=== PATIENT | male | born 1955 | race Caucasian/White ===

== ENCOUNTER 2017-12-16 03:18 | Observation (INO) ==
[2017-12-16] MEDS ORDERED: Nitroglycerin 0.4 MG TAB.SUBL SL PRN (10:03)
[2017-12-16] MEDS ORDERED: Naloxone 0.4 MG/ML INJ IVP PRN (10:12)
[2017-12-16] MEDS: amLODIPine 5 MG TABLET PO SCH (11:01)
[2017-12-16] MEDS: Aspirin 81 MG TAB.CHEW PO SCH (11:01)
[2017-12-16] MEDS: Loratadine 10 MG TABLET PO SCH (11:01)
[2017-12-16] MEDS: Losartan/HCTZ 50-12.5 TABLET PO SCH (11:01)
--- NOTE | 2017-12-16 20:25 | Internal Med History&Physical ---
Date of Encounter: 12/16/17 Time of Encounter: 08:07 Internal Medicine - H&P: HPI Chief complaint: Chest Pain Admitted From: Hospital to Hospital Transfer Plans for Post Hospital Care: Home History of present illness: Mr. Polanco is a 62 year old white male who presented to [facility] ED today with chest pain. He states that pain began last night. He described the pain as a "tightness" in his chest. He checked his blood pressure and became concerned because it was slightly elevated at 140s/90s. He has history of CAD s /p cath with stents 1 month ago. He states that pain is accompanied by some SOB this AM, but no diaphoresis or radiation. He denies fever, chills, abdominal pain, nausea, vomiting, changes in bladder, or changes in bowels. He took nitroglycerin prior to ED arrival without any relief of pain. He states that nothing makes it better or worse. I was asked by [place] ED physician to transfer patient for admission for ACS ruleout. During my interview, patient states that pain is much better. His only concern is his blood pressure. He has not taken his AM blood pressure medications today. Past Med Surg Social Fam HX - Past Medical History Attestation: Yes The following information was validated with the patient. Source: patient Medical history: hyperlipidemia, hypertension, other (CAD) Psychiatric history: no psych history - Past Surgical History Surgical History: angioplasty/stent - Social History Smoking Status: Never smoker Smokeless Tobacco Status: No Alcohol use: none Drug use: none - Family History Father Hx Family Cardiac Disorders: Yes Brother Living Status: Still Living Hx Family Cardiac Disorders: Yes (heart stent) Internal Medicine - H&P: Meds amLODIPine [Norvasc] 10 mg PO DAILY 10/12/17 [History] Carvedilol [Coreg] 6.25 mg PO BID 11/20/17 [History] Aspirin 81 mg PO DAILY #30 tab.chew 11/21/17 [Rx] Atorvastatin [Lipitor] 80 mg PO HS #30 tablet 11/21/17 [Rx] Clopidogrel [Plavix] 75 mg PO DAILY #30 tablet 11/21/17 [Rx] Nitroglycerin 0.4 mg SL Q5MIN PRN #25 tab.subl 11/21/17 [Rx] Acetaminophen w/Cod 300-30 mg [Tylenol w/Codeine #3] 1 - 2 tab PO Q4HR PRN 12/16 [History] Loratadine [Claritin] 10 mg PO DAILY 12/16/17 [History] Losartan/Hydrochlorothiazide [Losartan-Hctz 100-25 mg Tab] 1 tab PO DAILY [History] Meloxicam [Meloxicam] 15 mg PO DAILY 12/16/17 [History] 3 Allergy/AdvReac Type Severity Reaction Status Date / Time No Known Allergies Allergy Verified 12/16/17 01:10 All Systems PM: A 10-system review of systems was performed and is negative for pertinent findings except as documented above in the HPI. - Constitutional Constitutional: no anorexia, no chills, no fatigue, no fever(s), no lethargy, no malaise, no weakness, no weight gain, no weight loss - EENT Eyes: no blurry vision, no diplopia, no discharge, no loss of vision, no pain, no other visual disturbances Ears: no decreased hearing, no ear pain Nose, mouth and throat: no dry mouth, no dysphagia, no facial pain, no mouth lesions, no mouth pain, no nasal congestion, no nasal discharge, no sinus pain, no sore throat - Cardiovascular Cardiovascular ROS IM: chest pain, dyspnea, no diaphoresis, no edema, no lightheadedness, no palpitations, no syncope - Respiratory Respiratory: dyspnea, no cough, no hemoptysis, no wheezing, no chest congestion - Gastrointestinal Gastrointestinal: no abdominal pain, no change in bowel habits, no constipation , no diarrhea, no dysphagia, no heartburn, no hematemesis, no hematochezia, no melena, no nausea, no vomiting - Genitourinary Genitourinary ROS male: no difficulty urinating, no dysuria, no hematuria, no urinary frequency - Musculoskeletal Musculoskeletal ROS IM: no arthralgias, no joint swelling, no muscle weakness, no myalgias - Integumentary Integumentary IM: no erythema, no rash, no skin ulcer, no jaundice - Neurological Neurological ROS: no abnormal gait, no abnormal movements, no abnormal speech, no behavioral changes, no confusion, no dizziness, no focal weakness, no headache(s), no vertigo - Psychiatric Psychiatric: no anxiety, no confusion, no depression - Endocrine Endocrine IM: no cold intolerance, no fatigue, no heat intolerance, no polydipsia, no polyphagia, no polyuria - Constitutional Vitals: Temp Pulse Resp BP Pulse Ox 98.4 F 67 16 129/67 96 12/16/17 19:03 12/16/17 19:03 12/16/17 19:03 12/16/17 19:03 12/16/17 19:03 General appearance: Present: cooperative, A&O X 3, no acute distress, answers questions appropriately - Head Head exam: Present: atraumatic, normocephalic - Eye Eye exam: Present: EOMI, PERRL. Absent: conjunctival injection, nystagmus, scleral icterus - ENT ENT exam: Present: mucous membranes moist, normal external ear exam, normal oropharynx - Neck Neck exam general surgery: Present: supple, trachea midline. Absent: lymphadenopathy, tenderness, thyromegaly - Respiratory Respiratory exam: Present: CTAB. Absent: accessory muscle use, rales, rhonchi, wheezes Additional comments: Normal WOB - Cardiovascular Cardiovascular exam: Present: RRR, +S1, +S2. Absent: diastolic murmur, gallop, rubs, systolic murmur Additional comments: No BLE edema - GI/Abdominal GI/Abdominal exam: Present: normal bowel sounds, soft. Absent: distended, hepatomegaly, mass, splenomegaly, tenderness - Neurological Exam Neurological exam: Present: alert, CN II-XII intact, oriented X3, no focal deficits, strengths equal and symetr throughout. Absent: facial droop, speech deficit - Psychiatric Psychiatric exam: Present: normal affect, normal mood. Absent: anxious, depressed - Skin Skin exam: Present: dry, intact, warm. Absent: cyanosis, rash Internal Med - H&P Results - Labs CBC & Chem 7: 12/17/17 04:52 12/17/17 04:52 Labs: Cardiac Enzymes 12/16/17 12/16/17 Range/Units 10:32 17:21 Troponin I < 0.03 < 0.03 (< 0.04) ng/mL - VTE Reasons for not Prescribing Prophylaxis: Treatment not Indicated - Low risk for VTE Documentation of Mechanical Device: Intermittent pneumatic compression device - Assessment and plan (1) Chest pain Current Visit: Yes Status: Inactive Assessment and plan: Admit for observation with telemetry. Cardiology consulted given recent CAD with stents 1 month ago; appreciate input. Trend troponin x 3. Obtain ECHO. Repeat EKG in AM. Start supplemental O2 PRN. Continue home aspirin, plavix, and lipitor. Continue home Tylenol #3 and tramadol PRN pain. Continue HLD and HTN management as per below. Recheck labwork in AM. Qualifiers: Chest pain type: other chest pain Qualified Code(s): R07.89 - Other chest pain; R07.8 - Other chest pain (2) CAD (coronary artery disease) Current Visit: Yes Status: Chronic Assessment and plan: Management of ACS as per above. Continue home medications. Qualifiers: Coronary Disease-Associated Artery/Lesion type: unspecified vessel or lesion type [place] vs. transplanted heart: unspecified whether [place] or transplanted heart Associated angina: angina presence unspecified Qualified Code(s): I25.10 - Atherosclerotic heart disease of [place] coronary artery without angina pectoris (3) Hypertension Current Visit: Yes Status: Chronic Assessment and plan: Per patient, BP elevated to 140s/90s this AM. Did not take home medications this AM. Restart home anti-hypertensives. Qualifiers: Hypertension type: essential hypertension Qualified Code(s): I10 - Essential (primary) hypertension (4) Chronic lower back pain Current Visit: Yes Status: Chronic Assessment and plan: Continue home Tylenol #3 and tramadol PRN pain. Qualifiers: Back pain laterality: unspecified Sciatica presence: unspecified whether sciatica present Qualified Code(s): M54.5 - Low back pain; G89.29 - Other chronic pain; G89.29 - Other chronic pain (5) DVT prophylaxis Current Visit: Yes Status: Acute Assessment and plan: Low risk and ambulatory. Start SCDs. - Time Spent With Patient Total time spent is greater than 50% in coordination of care (as documented) at patient's floor/unit and/or counseling patient: 25 - 35 minutes
[2017-12-17 05:17] LABS: Basophils # 0.1 K/mcL (0.0-0.2); Basophils % 0.5 %; Eosinophils # 0.2 K/mcL (0.0-0.6); Hematocrit 42.3 % (37.5-50.1); Hemoglobin 14.5 g/dL (12.9-16.9); Immature Granulocytes % 0.3 % (0-4); Lymphocytes # 2.5 K/mcL (0.6-4.6); Lymphocytes % 24.2 %; Mean Corpuscular HGB Conc 34.3 g/dL (31.6-35.5); Mean Corpuscular Hemoglobin 31.4 pg (28.0-33.3); Mean Corpuscular Volume 91.6 fL (83.0-100.0); Mean Platelet Volume 10.3 fL (9.4-12.4); Monocytes # 0.9 K/mcL (0.0-1.3); Monocytes % 8.7 %; Neutrophils # 6.5 K/mcL (1.6-8.9); Platelet Count 197 K/mcL (140-400); Red Blood Count 4.62 M/mcL (4.19-5.50); Red Cell Distribution Width 13.5 % (11.5-14.5); Segmented Neutrophils % 64.3 %
[2017-12-17 05:35] LABS: BUN/Creatinine Ratio 20 (6-26); Blood Urea Nitrogen 17 mg/dL (8-23); Calcium 8.6 mg/dL (8.6-10.3); Carbon Dioxide 25 mEq/L (23-29); Chloride 105 mEq/L (98-107); Glucose 87 mg/dL (70-105); Osmolality,Calculated 289 (280-300); Potassium 3.4 mEq/L (3.5-5.1); Sodium 139 mEq/L (136-145); eGFR For African Americans > 60 (> 60); eGFR For Non-African Americans > 60 (> 60)
--- NOTE | 2017-12-17 08:14 | Cardiology Consult Note ---
<Barby Bowles - Last Filed: 12/17/17 10:29> Date of Encounter: 12/17/17 Time of Encounter: 09:07 Assessment and Plan (1) CAD (coronary artery disease) Current Visit: Yes Status: Chronic Concern for unstable angina at this time due to patient's chest pressure unchanged since cath. We will review cath images and determine if patient needs repeat cath. Patient denies chest pain at this time. Qualifiers: Coronary Disease-Associated Artery/Lesion type: [place] artery [place] vs. transplanted heart: [place] heart Associated angina: angina presence unspecified Qualified Code(s): I25.10 - Atherosclerotic heart disease of [place] coronary artery without angina pectoris (2) Hypertension Current Visit: Yes Status: Chronic Continue home medications Qualifiers: Hypertension type: essential hypertension Qualified Code(s): I10 - Essential (primary) hypertension Discussion w patient/family: The assessment and plan as outlined above was discussed with the patient and/or family members who expressed understanding and agreement. All questions were answered. Thank you for involving us in the care of your patient. Please call with any questions. History of Present Illness Consult date: 12/17/17 Consult reason: Chest Pain History of present illness: Mr. Polanco is a 62 year old male who presented to [place] ED yesterday for chest pressure, hypertension, and headache. Patient was sent to [facility] for further evaluation. Patient had cath completed approximately one month ago and had stents placed in the proximal and distal LAD. Patient states his chest pressure occurred substernally at rest with no radiation, diaphoresis, nausea or vomiting. Patient states he has had intermittent episodes of chest pressure since his cath. He states last evening when he had this chest pressure he took a sublingual nitro with no relief. Most active patient has been since cath was mowing his lawn with a riding mower a few days ago. States he has been taking his plavix and aspirin as prescribed. Patient states the reasoning for his first heart cath was a surgical clearance. His EKG was read abnormal at that time and the decision was made to perform a catheterization. Past Med Surg Social Fam HX - Past Medical History Attestation: Yes The following information was validated with the patient. Medical history: hyperlipidemia, hypertension, other (CAD) Psychiatric history: no psych history - Past Surgical History Surgical History: angioplasty/stent - Social History Smoking Status: Never smoker Smokeless Tobacco Status: No Alcohol use: none Drug use: none - Family History Father Hx Family Cardiac Disorders: Yes Brother Living Status: Still Living Hx Family Cardiac Disorders: Yes (heart stent) Medications and Allergies amLODIPine [Norvasc] 10 mg PO DAILY 10/12/17 [History] Carvedilol [Coreg] 6.25 mg PO BID 11/20/17 [History] Aspirin 81 mg PO DAILY #30 tab.chew 11/21/17 [Rx] Atorvastatin [Lipitor] 80 mg PO HS #30 tablet 11/21/17 [Rx] Clopidogrel [Plavix] 75 mg PO DAILY #30 tablet 11/21/17 [Rx] Nitroglycerin 0.4 mg SL Q5MIN PRN #25 tab.subl 11/21/17 [Rx] Acetaminophen w/Cod 300-30 mg [Tylenol w/Codeine #3] 1 - 2 tab PO Q4HR PRN 12/16 [History] Loratadine [Claritin] 10 mg PO DAILY 12/16/17 [History] Losartan/Hydrochlorothiazide [Losartan-Hctz 100-25 mg Tab] 1 tab PO DAILY [History] Meloxicam [Meloxicam] 15 mg PO DAILY 12/16/17 [History] 3 Allergy/AdvReac Type Severity Reaction Status Date / Time No Known Allergies Allergy Verified 12/16/17 01:10 All Systems Review: The remainder of the systems were reviewed and are negative - Constitutional Constitutional: headache(s), no fever(s) - EENT Eyes: no blurred vision, no loss of vision - Cardiovascular Cardiovascular: as per HPI - Respiratory Respiratory: no cough, no dyspnea - Gastrointestinal Gastrointestinal: no abdominal pain - Integumentary Integumentary: no rash - Neurological Neurological: no abnormal speech, no loss of vision - Psychiatric Psychiatric: anxiety Physical Examination Vital Signs, Last 4 Hours Temp Pulse Resp BP Pulse Ox 12/17/17 07:07 97.7 F 53 15 138/83 92 General: Conversant, No Apparent Distress HEENT: Atraumatic, Normocephaly, Mucus Membranes Moist Neck: No JVD Cardiac: Reg Rate and Rhythm, Normal S1 and S2, No Murmur Lungs: Normal Breath Sounds, No Wheeze, Rales, Rhonchi Neuro: Alert and responsive, No focal deficits noted Abdomen: Soft, Non-Tender Skin: No rashes noted on visualized skin Musculoskeletal: No Chest Wall Tenderness Extremities: No Clubbing, No Cyanosis, No Edema, Normal Pulses Results 12/17/17 04:52 12/17/17 04:52 Lab Results 12/16/17 12/16/17 12/17/17 10:32 17:21 04:52 WBC 10.1 Hgb 14.5 Hct 42.3 Plt Count 197 Sodium Potassium Chloride Carbon Dioxide BUN Creatinine Glucose Calcium Troponin I < 0.03 < 0.03 12/17/17 04:52 WBC Hgb Hct Plt Count Sodium 139 Potassium 3.4 L Chloride 105 Carbon Dioxide 25 BUN 17 Creatinine 0.87 Glucose 87 Calcium 8.6 Troponin I Consult Discharge Plan - Plan Referrals: Norma Cruz CNP [Primary Care Provider] - Leonor Smith CNP [Family Provider] - <Johnnie Vazquez - Last Filed: 12/17/17 13:41> Date of Encounter: 12/17/17 - Attending Attestation I examined this patient and my medical decision-making was reviewed with the Resident Physician. I agree with the documented findings, disposition and treatment plan as described except to the extent set forth below. CC: chest pain Pt presented to [place] ER late yesterday with complaint of mid epigastric chest pain, dull ache, 8/10, associated with head ache, pain in posterior neck, left shoulder, nausea, anxiety, and mild diaphoresis. Pt reports waited up to an hour, tried SL ntg with eventual relief of chest pain. He feels better since hospitalized, no reoccurrence of mid epigastric chest discomfort. He did not realize this pain pattern could be from CAD, but in retrospect thinks this has been ongoing for several months. HE thinks he may have had some improvement in frequency and severity of chest pain following most recent PCI with DIANNA x 2, but that the pain did not completely resolve over the last month. PMH: reviewed PE: pt seen and examined, agree with documentation IMP: 1. Unstable angina - has ruled out for acute UT, however with known residual severe stenosis in proximal RCA, recommend LHC/possible, risks and benefits discussed,d pt elects to proceed with LHC later today if can be arranged. Assessment and Plan Discussion w patient/family: The assessment and plan as outlined above was discussed with the patient and/or family members who expressed understanding and agreement. All questions were answered. Thank you for involving us in the care of your patient. Please call with any questions. History of Present Illness History of present illness: Mr. Polanco is a 62 year old male All Systems Review: The remainder of the systems were reviewed and are negative Physical Examination Vital Signs, Last 4 Hours Temp Pulse Resp BP Pulse Ox 12/17/17 11:15 98.1 F 64 15 124/80 92 Results 12/17/17 04:52 12/17/17 04:52 Lab Results 12/16/17 12/17/17 12/17/17 17:21 04:52 04:52 WBC 10.1 Hgb 14.5 Hct 42.3 Plt Count 197 Sodium 139 Potassium 3.4 L Chloride 105 Carbon Dioxide 25 BUN 17 Creatinine 0.87 Glucose 87 Calcium 8.6 Troponin I < 0.03
[2017-12-17] MEDS ORDERED: Aspirin 81 MG TAB.CHEW PO SCH (09:00)
[2017-12-17] MEDS: Aspirin 81 MG TAB.CHEW PO SCH (10:20)
[2017-12-17] MEDS: Loratadine 10 MG TABLET PO SCH (10:20)
[2017-12-17] MEDS: amLODIPine 5 MG TABLET PO SCH (10:20)
[2017-12-17] MEDS: Losartan/HCTZ 50-12.5 TABLET PO SCH (10:20)
[2017-12-17] MEDS ORDERED: Aspirin 81 MG TAB.CHEW PO ONE (10:36)
--- NOTE | 2017-12-17 11:57 | Pre-Sedation Evaluation ---
Pre-sedation evaluation - Pre-sedation checklist Date of procedure: 12/17/17 Procedure: C Recent Vitals: Last Vital Signs Temp 98.1 F 12/17/17 11:15 Pulse 64 12/17/17 11:15 Resp 15 12/17/17 11:15 BP 124/80 12/17/17 11:15 Pulse Ox 92 12/17/17 11:15 H&P (including ROS) documented in medical record: Yes Previous reaction to sedatives/anesthetics: No Dietary Status: NPO after Midnight Dentition: No loose teeth or bridges ASA Classification *see protocol: CLASS II-Mild systemic disease
[2017-12-17] MEDS ORDERED: ISOVUE-370 200 ML INFUS..BTL IV ONE ×2 (13:25→14:23)
[2017-12-17] MEDS ORDERED: 0.9 % Sodium Chloride 1,000 ML ONE ×2 (13:25→13:29)
[2017-12-17] MEDS ORDERED: Heparin 1,000 UNITS/500 mL 500 ML ONE (13:25)
[2017-12-17] MEDS ORDERED: *HR* Heparin 10,000 UNIT/10 ML VIAL ONE (13:25)
[2017-12-17] MEDS ORDERED: *HR* Midazolam HCl 2 MG/2 ML VIAL ONE (13:28)
[2017-12-17] MEDS ORDERED: *HR* FentaNYL (PF) 100 MCG/2 ML VIAL ONE (13:28)
[2017-12-17] MEDS ORDERED: Nitroglycerin 1,000 MCG/10 ML VIAL IV ONE (13:29)
[2017-12-17] MEDS ORDERED: Tirofiban 12.5 MG/250ML 12.5 MG/250 ML BAG ONE (14:00)
[2017-12-17] MEDS ORDERED: *HR* Atropine Sulfate 1 MG/10 ML SYRINGE ONE (16:10)
--- NOTE | 2017-12-17 17:10 | Invasive Diagnostic Lab Proc ---
Name: Mo Polanco Date of Study: 12/17/2017 Date: 1955 Ht: 64.2in Medical Record#: [id number] Age: 62 Wt: 216.05lb Gender: Male BSA: 2.03 Order #: [id number] BMI: 36.89 Physicians Procedure Physician: Linette Newton MD Referring MD: Referring MD: Staff Name Position Time In BruceJacquelin RT (R) 01:38 PM Jacquelin Barrera RT (R) Scrub 01:38 PM Montserrat Gutiérrez RN Customer Development Manager 01:38 PM Angela Zaragoza RN Monitor 01:38 PM Prashanth Galeano RN Monitor 01:39 PM Indications Indication Unstable Angina Procedures Performed Procedure CORONARY ARTERY ANGIO S&I PRQ CARD DIANNA STENT W/ANGIO 1 VSL Pre-Procedure Checklist Informed consent is complete signed and on chart. H&P is on chart. ID band is on and ID verified with patient. Patient NPO for procedure The procedure was described for the patient and questions were answered. Blood Pressure: 124/80 ECG is on chart. Plan of Care Patient will tolerate the procedure without complications. Adequate level of comfort will be maintained. Hemodynamics will remain stable Patient will recover from procedure without complications. Respiratory function will be maintained. Cardiac rhythm will remain stable. Patient temperature will be maintained. Patient and/or family have verbalized understanding of the procedure. Patient Education Chief Complaint/Reason for Test: Cardiac Cath Developmental Category: Adult (18-64 years) Developmentally Appropriate for Age: Yes Learning Barriers: None Education Needs: Procedure Education Method: Verbal Information Taught: Cardiac Cath Educational Evaluation: Able to repeat information Intravenous Access Time IV Size Location DC'd Fluid/Drip Rate Units RN 01:45 PM 20g 1 08/30" Patent On Arrival Rt Antecubital 0.9NaCl Montserrat Gutiérrez RN Allergies No Known Allergies Vital Signs Time BP (mmHg) HR (bpm) O2 Sat. RR (bpm) LOC 01:22 PM 124 / 80 64 92 % 15 5 = Fully awake and oriented or at pre-proc level 01:40 PM / % 5 = Fully awake and oriented or at pre-proc level 01:40 PM / % 5 = Fully awake and oriented or at pre-proc level 03:03 PM 126 / 86 60 94 % 22 5 = Fully awake and oriented or at pre-proc level 01:46 PM 143 / 89 62 98 % 01:50 PM 141 / 79 57 98 % 01:55 PM 133 / 78 60 95 % 02:00 PM 133 / 80 64 96 % 02:05 PM 133 / 80 59 96 % 02:10 PM 127 / 72 60 96 % 02:15 PM 125 / 76 52 94 % 02:20 PM 115 / 71 50 95 % 02:25 PM 109 / 66 51 95 % 02:30 PM 111 / 67 52 94 % 02:35 PM 109 / 66 54 94 % 02:40 PM 115 / 69 54 95 % 02:46 PM 112 / 69 52 95 % 02:50 PM 122 / 75 57 96 % 03:15 PM 111 / 78 60 95 % 16 5 = Fully awake and oriented or at pre-proc level 03:30 PM 115 / 74 64 95 % 16 5 = Fully awake and oriented or at pre-proc level 03:45 PM 130 / 74 58 96 % 16 5 = Fully awake and oriented or at pre-proc level 04:00 PM 111 / 69 60 94 % 5 = Fully awake and oriented or at pre-proc level 04:15 PM 125 / 81 52 95 % 5 = Fully awake and oriented or at pre-proc level 04:30 PM 143 / 86 53 94 % 5 = Fully awake and oriented or at pre-proc level 04:45 PM 122 / 78 52 95 % 5 = Fully awake and oriented or at pre-proc level 04:58 PM 113 / 71 54 95 % 5 = Fully awake and oriented or at pre-proc level Procedural Medications Time Medication Dose Units Method Given By 01:44 PM Oxygen 2 L/min nasal cannula 01:49 PM Versed 1 mg Intravenous Montserrat Gutiérrez RN 01:49 PM Fentanyl 50 mcg Intravenous Montserrat Gutiérrez RN 01:50 PM Lidocaine 2% 10 ml Subcutaneous Linette Newton MD 01:54 PM Heparin 5000 units Intravenous Montserrat Gutiérrez RN 02:07 PM Aggrastat Bolus: 50 ml Intravenous Montserrat Gutiérrez RN 02:07 PM Aggrastat 12.5mg/250ml 18 ml/hr Intravenous Montserrat Gutiérrez RN Zohra Score Preprocedure Postprocedure Activity 2- Moves 4 extremities sustained head lift Activity 2- Moves 4 extremities sustained head lift Circulation 2- SBP +/= 20 points of pre-anesthetic level Circulation 2- SBP +/= 20 points of pre-anesthetic level Consciousness 2- Awake and alert oriented x 3 Consciousness 2- Awake and alert oriented x 3 O2 Saturation 2- Able to maintain O2 satruation of 92% on room air O2 Saturation 2- Able to maintain O2 satruation of 92% on room air Respiratory 2- Able to deep breathe and cough well Respiratory 2- Able to deep breathe and cough well Total Score 10 Total Score 10 Contrast Agent: Isovue Diagnostic Contrast: 150 ml Total Contrast: 150 ml Fluoro Dose: 2262 mGy Activated Clotting Time Time Seconds to Clot 02:34 PM 295 02:55 PM 205 04:00 PM 157 Procedure Log Time Note Enter By 01:38 PM Jacquelin Barrera RT (R) Position: Scrub Time in: 13:38 [facility] 01:38 PM Montserrat Gutiérrez RN Position: Customer Development Manager Time in: 13:38 [facility] 01:38 PM Angela Zaragoza RN Position: Monitor Time in: 13:38 [facility] 01:39 PM Prashanth Galeano RN Position: Monitor Time in: 13:39 [facility] 01:39 PM Hair removed from procedure site in procedure lab using clippers. Bilateral groin prepped with Chloraprep by Angela Zaragoza RN, then patient was draped. Skin intact. [facility] 01:40 PM Physican responded and notified patient is ready 13:40 tsmmers 01:40 PM Physician arrived 13:40 [facility] 01:40 PM Meet and greet completed [facility] 01:40 PM Sign in performed according to hospital policy. mmers 01:40 PM Procedure start 13:40 tsoummers 01:40 PM Time: 13:40 Patient comfortable and pain free: Yes tsoummers 01:40 PM Time: 13:40LOC: 5 = Fully awake and oriented or at pre-proc level tsoummers 01:42 PM Vitals capture started with the following parameters, Patient=Adult, Interval=5 min, Initial Ffalzhls=789 mmHg, Deflation Rate=5 mmHg, Cuff placed on Right Arm 01:43 PM CathStat 01:43 PM NIBP STAT measurement started. 01:44 PM Time: 13:44 Oxygen on at 2 L/min per nasal cannula by priscilla 01:44 PM Vitals capture started with the following parameters, Patient=Adult, Interval=5 min, Initial Lcwazzdr=002 mmHg, Deflation Rate=5 mmHg, Cuff placed on Right Arm 01:46 PM HR=62 bpm, QTTJ=198/89 mmhg, SpO2=98.0 %, Comment=NSR 01:46 PM Recorded ECG: HR=63 Condition=Condition 1 01:49 PM Pressure channel 1 zeroed. :49 PM Time: 13:49 Versed 1 mg Intravenous Given by Montserrat Gutiérrez RN :49 PM Time: 13:49 Fentanyl 50 mcg Intravenous Given by Montserrat Gutiérrez RN :50 PM Time out performed according to hospital policy romain :50 PM Time: 13:50 10 ml Lidocaine 2% to right groin Subcutaneous Given by Linette Newton MD juan 01:50 PM HR=57 bpm, AGYO=506/79 mmhg, SpO2=98.0 %, Comment=SB :50 PM Access obtained by percutaneous puncture. 6Fr 10cm Terumo [place] sheath placed in right Femoral artery. [id number] 01:50 PM 5Fr FL 4 catheter inserted over the wire [facility] :50 PM 0.035 145cm Navilyst 3mmJ wire [id number] 01:52 PM Clinical Presentation: Unstable angina kyle 01:52 PM wire removed romain :53 PM Recorded Pressure: Ao, HR=58, Condition=Condition 1 (Aorta) Ao 120/79/98 01:53 PM Time: 13:40LOC: 5 = Fully awake and oriented or at pre-proc level romain :53 PM LCA angiography performed in multiple views. kyle :55 PM Time: 13:54 Heparin 5000 units Intravenous Given by Montserrat Gutiérrez RN juan :55 PM HR=60 bpm, QENO=660/78 mmhg, SpO2=95.0 %, Comment=NSR :55 PM Time: 13:40 Patient comfortable and pain free: Yes juan :55 PM Catheter removed juan :56 PM 6Fr JR 4 Dennard Bright-Tip guide catheter was used to cannulate the PCI vessel successfully. reused? No tsoummers 01:57 PM RCA angiography performed in multiple views. tsmm 01:58 PM Inflation device was opened. tsoummers 01:59 PM .014 [employer] [place] 190cm guide wire across target lesion- successful. reused? No tsoummers 02:00 PM Recorded Pressure: Ao, HR=64, Condition=Condition 1 (Aorta) Ao 99/61/76 02:00 PM HR=64 bpm, DMOW=684/80 mmhg, SpO2=96.0 %, Comment=NSR 02:01 PM 2.0 mm x 12 mm Emerge Monorail balloon across target lesion- successful. reused? No tsoummers 02:03 PM Recorded Pressure: Ao, HR=68, Condition=Condition 1 (Aorta) Ao 120/74/96 02:03 PM Lesion found in Proximal RCA. Pre Stenosis: 90 Pre DONNIE Flow: 3: Complete and Brisk Flow/Perfusion tsoummers 02:05 PM HR=59 bpm, JTRA=536/80 mmhg, SpO2=96.0 %, Comment=NSR 02:05 PM .014 [employer] [place] 190cm guide wire across target lesion- successful. reused? No tsoummers 02:07 PM Time: 14:07 Aggrastat Bolus: 50 ml Intravenous Given by Montserrat Gutiérrez RN Jenkins pump tsoumm 02:07 PM Time: 14:07 Aggrastat 12.5mg/250ml 18 ml/hr Intravenous Given by Montserrat Gutiérrez RN Jenkins pump tsoumm 02:08 PM Balloon inflated @ 6 violeta for 8 seconds tsoumm 02:08 PM Balloon inflated @ 8 violeta for 10 seconds tsoumm 02:09 PM Balloon inflated @ 6 violeta for 9 seconds tsoummers 02:09 PM Balloon inflated @ 8 violeta for 8 seconds tsoummers 02:09 PM Balloon catheter removed intact. tsoumm 02:10 PM HR=60 bpm, VDFI=164/72 mmhg, SpO2=96.0 %, Comment=NSR 02:10 PM Recorded Pressure: Ao, HR=61, Condition=Condition 1 (Aorta) Ao 106/67/84 02:10 PM Time: 13:55 Patient comfortable and pain free: Yes tsoummers 02:11 PM 2.5mm x 20mm Synergy drug-eluting stent across target lesion- successful Lot #[id number] tsoummers 02:15 PM HR=52 bpm, ZHDD=988/76 mmhg, SpO2=94.0 %, Comment=NSR 02:19 PM Guide wire x 2 removed intact. tsoummers 02:19 PM Stent removed intact not deployed. tsoummers 02:20 PM HR=50 bpm, HUXT=330/71 mmhg, SpO2=95.0 %, Comment=SB 02:21 PM Guidewire reinserted tsoummers 02:23 PM 2nd guidewire reinserted tsoummers 02:25 PM HR=51 bpm, KMCG=221/66 mmhg, SpO2=95.0 %, Comment=SB 02:25 PM Time: 14:10 Patient comfortable and pain free: Yes tsoummers 02:26 PM 2.0mm x 12mm balloon reinserted tsoummers 02:27 PM Balloon inflated @ 6 violeta for 6 seconds tsoummers 02:28 PM Balloon inflated @ 8 violeta for 4 seconds tsoummers 02:28 PM Balloon inflated @ 10 violeta for 7 seconds tsoummers 02:29 PM Balloon inflated @ 8 violeta for 4 seconds tsoummers 02:29 PM Balloon inflated @ 10 violeta for 6 seconds tsoummers 02:30 PM Balloon catheter removed intact. tsoummers 02:30 PM HR=52 bpm, PTLW=856/67 mmhg, SpO2=94.0 %, Comment=SB 02:30 PM two guidewires removed tsoummers 02:32 PM .014 [employer] [place] 190cm guide wire across target lesion- successful. reused? No tsoummers 02:34 PM At 14:34 the ACT was 295 seconds. tsoummers 02:35 PM HR=54 bpm, YJWZ=419/66 mmhg, SpO2=94.0 %, Comment=SB 02:37 PM 2.5 mm x 12 mm Emerge Monorail balloon across target lesion- successful. reused? No tsoummers 02:39 PM Balloon inflated @ 6 violeta for 10 seconds tsoummers 02:39 PM Balloon inflated @ 6 violeta for 5 seconds tsoummers 02:39 PM Balloon inflated @ 12 violeta for 18 seconds tsoummers 02:40 PM Balloon inflated @ 12 violeta for 4 seconds tsoummers 02:40 PM Balloon inflated @ 12 violeta for 4 seconds tsoummers 02:40 PM HR=54 bpm, WACY=581/69 mmhg, SpO2=95.0 %, Comment=SB 02:40 PM Balloon inflated @ 12 violeta for 4 seconds tsoummers 02:40 PM Time: 14:25 Patient comfortable and pain free: Yes tsoummers 02:41 PM Balloon catheter removed intact. tsoumm 02:42 PM 2.5mm x 20mm Synergy reinserted tsoummers 02:44 PM bed management calls, pt will be sent to 2N01 following procedure. tsoumm 02:45 PM Stent deployed @ 11 violeta for 9 seconds tsoumm 02:45 PM Stent balloon reinflated @ 16 violeta for 10 seconds tsoummers 02:46 PM HR=52 bpm, EFKP=148/69 mmhg, SpO2=95.0 %, Comment=SB 02:46 PM Stent delivery system removed intact. tsoumm 02:46 PM Guide wire removed intact. tsoumm 02:47 PM Guide catheter removed intact. tsoummers 02:47 PM Procedure completed at 14:47 tsoummers 02:47 PM Did you address DONNIE flow and Dominance? Yes tsoummers 02:47 PM Sign out completed: Radiation Dose 2261.95 mGy Fluoro Time: 25.8 Isovue 370 - 200ml contrast 150 ml given by Linette Newton MD. Complications: NoneCardiac Rehab Consult needed: YesConfirmed administered medications: Yes tsoummers 02:48 PM Isovue 370 - 200ml,2 Bottle(s) used. tsoummers 02:49 PM Sheath left in place to be pulled on floor/holding area tsoummers 02:49 PM 2N01 not clean per MCKENZIE MONGE at this time tsoummers 02:50 PM Estimated Blood Loss: minimal tsoummers 02:50 PM Post ECG Sinus Bradycardia tsoummers 02:50 PM Post Blood Pressure 112/69 tsoummers 02:50 PM HR=57 bpm, ZSVA=537/75 mmhg, SpO2=96.0 %, Comment=SB 02:51 PM 14:50 Post Pulses Bilateral DP & PT 2+ tsoummers 02:52 PM Information taught Cardiac Cath and PCI tsoummers 02:53 PM Report given to Chidi RN Pt taken to 2N Room #01. 14:53 room not clean tsoummers 02:53 PM Report given to lenard MONGE Pt taken to Holding room Room #1. 14:53 tsoummers 02:54 PM floor delay due to bed dirty tsoumm 02:55 PM Family placed in consult room. tsoumm 02:55 PM Complications: None tsoummers 02:55 PM At 14:55 the ACT was 205 seconds. mm 02:55 PM Fluoro Time: 25.8 mm 02:55 PM Isovue 370 - 200ml contrast [address] Newton. oumm 02:55 PM Radiation Dose 2261.95 mGy oumm 02:55 PM Education needs Procedure, Plan of Care, and Responsibilities of Patient in Care oumm 02:55 PM Learning barriers :None oummers 02:55 PM Education Methods Verbal mm 02:55 PM Education evaluation Able to repeat information [facility] 02:55 PM Site status No bleeding/hematoma - Rt Groin as reported by Jacquelin Barrera RT (R) at 14:55 tsoummers 02:55 PM Opsite applied tsoummers 02:58 PM Lesion found in Proximal Circumflex. Pre Stenosis: 60 Pre DONNIE Flow: tsoummers 02:58 PM Lesion found in LMCA. Pre Stenosis: 20 Pre DONNIE Flow: tsoummers 02:59 PM Lesion found in 1st Diagonal. Pre Stenosis: 80 Pre DONNIE Flow: tsoummers 02:59 PM Left Main Coronary Artery with 20% stenosis tsoummers 02:59 PM Mid/Distal Left Anterior Descending Coronary Artery and diagonal branches with 80% stenosis. If graft is supplying this area, 0 % stenosis tsoummers 02:59 PM Circumflex, Obtuse Marginal, Left Posterior Descending, and Left Posterolateral Coronary Arteries with 60 % stenosis. If graft is supplying this area, 0 % stenosis tsoummers 02:59 PM Right Coronary, Right Posterior Descending Arteries with Right Posterolateral and Acute Marginal branches with 90 % stenosis. If graft is supplying this area, 0 % stenosis tsoummers 03:00 PM Lesion found in Distal RCA. Pre Stenosis: 70 Pre DONNIE Flow: tsoummers 03:01 PM Patient out of room: 15:09 tsouromain 03:02 PM Lesion found in Mid RCA. Pre Stenosis: 50 Pre DONNIE Flow: tsarmandmmromain 03:03 PM pt checked into HR 1 [email or web address] 03:10 PM Coronary Dominance: right priscilla 03:53 PM pt voided 300mL clear dark yellow urine [facility] 04:18 PM Arterial sheath pulled using manual compression and V+ Pad for 19 minutes by Pastora Lopez RN [facility] 04:32 PM spoke with 2N nurse Good, room has still not been cleaned. Sheath has been pulled by Fatuma Lopez RN. Pt will go back to [address] [place] [address] 04:37 PM Arterial sheath pulled, 2x2 closure device used and was Successful S/N. [facility] 04:37 PM Report given to Oneida MONGE Pt taken to Room #45. 16:37 [email or web address] 05:00 PM pt transported to [address] [place] [address] Complications Complication None None Hemodynamics Pressures Site Systolic/A Wave Diastolic/V Wave Mean AO 120 79 98 AO 99 61 76 AO 120 74 96 AO 106 67 84 Post Procedure Information Blood Pressure: 112/69 mmHg Rhythm: Sinus Bradycardia Post procedural instructions were given Site Checks Time Location Status Staff Sheath In? Note 02:55 PM Rt Groin No bleeding/hematoma Jacquelin Barrera RT (R) Yes 03:03 PM Rt Groin No bleeding/ No Hematoma Jacquelin Barrera RT (R) Yes 03:15 PM Rt Groin No bleeding/ No Hematoma Pastora Lopez RN Yes 03:30 PM Rt Groin No bleeding/ No Hematoma Pastora Lopez RN Yes 03:45 PM Rt Groin No bleeding/ No Hematoma Pastora Lopez RN Yes 04:00 PM Rt Groin No bleeding/ No Hematoma Pastora Lopez RN Yes 04:15 PM Rt Groin No bleeding/ No Hematoma Pastora Lopez RN Yes 04:30 PM Rt Groin No bleeding/ No Hematoma Pastora Lopez RN 04:45 PM Rt Groin No bleeding/ No Hematoma Pastora Lopez RN 04:58 PM Rt Groin No bleeding/ No Hematoma Pastora Lopez RN Pulses Time Site Pre-Procedure Post-Procedure Note 12/17/2017 1:21:00 PM Bilateral DP & PT 2+ 12/17/2017 1:22:00 PM Bilateral radial 2+ 2:50:00 PM Bilateral DP & PT 2+ 12/17/2017 3:15:00 PM Bilateral DP & PT 2+ 12/17/2017 3:30:00 PM Bilateral DP & PT 2+ 12/17/2017 3:45:00 PM Bilateral DP & PT 2+ 12/17/2017 4:00:00 PM Bilateral DP & PT 2+ 12/17/2017 4:58:00 PM Bilateral DP & PT 2+ Updated by Narcisa Joseph RN on 12/17/2017 5:01:20 PM electronically signed on 12/17/2017 5:02:42 PM with status of Final
--- NOTE | 2017-12-17 17:10 | Internal Med Progress Note ---
Date of Encounter: 12/17/17 Time of Encounter: 17:06 - Assessment and plan (1) Chest pain Current Visit: Yes Status: Inactive Assessment and plan: Present with chest tightness that radiated to neck. Serial troponin negative. EKG without acute ST changes. Evaluated by cardiology who noted concern for restenosis with persistent chest tightness. 12/17/17 [facility] with successful PCI with drug-eluting stent to proximal RCA, stents to mid LAD and distal LAD from prior procedure patent. Continue dual antiplatelet therapy with ASA, aspirin. Further management per cardiology recommendations. Monitor on telemetry. Qualifiers: Chest pain type: other chest pain Qualified Code(s): R07.89 - Other chest pain; R07.8 - Other chest pain (2) CAD (coronary artery disease) Current Visit: Yes Status: Chronic Assessment and plan: has known CAD with recent stent placement. Now with chest pain as noted above. 12/17/17 [facility] with successful PCI with drug-eluting stent to proximal RCA, stents to mid LAD and distal LAD from prior procedure patent. Continue dual antiplatelet therapy with ASA, aspirin. Continue home statin, BB (monitor HR as he has been somewhat bradycardic). Further course of treatment per cardiology recommendations. Qualifiers: Coronary Disease-Associated Artery/Lesion type: [place] artery [place] vs. transplanted heart: [place] heart Associated angina: angina presence unspecified Qualified Code(s): I25.10 - Atherosclerotic heart disease of [place] coronary artery without angina pectoris (3) Chronic lower back pain Current Visit: Yes Status: Chronic Assessment and plan: per hx. Cont home Tylenol #3 and tramadol PRN pain. Qualifiers: Back pain laterality: unspecified Sciatica presence: unspecified whether sciatica present Qualified Code(s): M54.5 - Low back pain; G89.29 - Other chronic pain; G89.29 - Other chronic pain (4) Hypertension Current Visit: Yes Status: Chronic Assessment and plan: per hx. BP controlled. Continue home BP medication. Monitor BP and titrate PRN Qualifiers: Hypertension type: essential hypertension Qualified Code(s): I10 - Essential (primary) hypertension (5) DVT prophylaxis Current Visit: Yes Status: Acute Assessment and plan: SCDs. - Time Spent With Patient Total time spent is greater than 50% in coordination of care (as documented) at patient's floor/unit and/or counseling patient: - Subjective Interval history: Seen and examined at bedside. Patient is new to me, information obtained from chart review and patient report. He still complaining of chest tightness that radiates to left neck and at the back of his head. Rates 3/10. Overall improved. He does have some shortness of breath with exertion. - Constitutional Vitals: Temp Pulse Resp BP Pulse Ox 98.1 F 64 15 124/80 92 12/17/17 11:15 12/17/17 11:15 12/17/17 11:15 12/17/17 11:15 12/17/17 11:15 General appearance: Present: cooperative, A&O X 3, morbidly obese, no acute distress, answers questions appropriately - Head Head exam: Present: atraumatic, normocephalic - Eye Eye exam: Present: PERRL, conjuntiva pink, sclera anicteric Pupils: Present: PERRL - Neck Neck exam general surgery: Present: supple, trachea midline. Absent: lymphadenopathy - Respiratory Respiratory exam: Present: CTAB. Absent: accessory muscle use, rales, rhonchi, wheezes - Cardiovascular Cardiovascular exam: Present: RRR, +S1, +S2. Absent: diastolic murmur, gallop, rubs, systolic murmur - GI/Abdominal GI/Abdominal exam: Present: normal bowel sounds, soft, no peritoneal signs. Absent: distended, tenderness - Extremities Exam Extremities exam: Present: warm, radial pulses palpable and symmetrical. Absent : calf tenderness, cyanotic, pedal edema - Neurological Exam Neurological exam: Present: CN II-XII intact, oriented X3, no focal deficits. Absent: pronater drift, facial droop, speech deficit - Skin Skin exam: Present: dry, intact Internal Medicine: Result - Labs CBC & Chem 7: 12/17/17 04:52 12/17/17 04:52 Labs: Short CBC 12/17/17 Range/Units 04:52 WBC 10.1 (4.3-11.1) K/mcL Hgb 14.5 (12.9-16.9) g/dL Hct 42.3 (37.5-50.1) % Plt Count 197 (140-400) K/mcL Neutrophils # 6.5 (1.6-8.9) K/mcL BMP 12/17/17 04:52 Sodium 139 Potassium 3.4 L Chloride 105 Carbon Dioxide 25 BUN 17 Creatinine 0.87 Glucose 87 Calcium 8.6 Cardiac Enzymes 12/16/17 Range/Units 17:21 Troponin I < 0.03 (< 0.04) ng/mL - Impressions Impressions Echocardiogram Limited Views 12/17/17 10:12 Impressions: LVEF 60%. Normal LV structure and function. Normal right ventricular structure and function. Left Ventricular Wall Motion: Rest Echo Findings All wall segments showed normal motion. Findings: Study Quality * Technically adequate exam. ECG Findings * Sinus bradycardia. Left Ventricle * LVEF 60%. * Normal LV chamber size, wall thickness and function. Right Ventricle * Normal right ventricular structure and function. Aorta * Normally sized aortic root. Pericardium * There is no pericardial effusion present. - VTE Reasons for not Prescribing Prophylaxis: Treatment not Indicated - Low risk for VTE Documentation of Mechanical Device: Intermittent pneumatic compression device Consult Discharge Plan - Plan Referrals: Leonor Smith, UTILITY ASSEMBLER [Family Provider] - (This is a walkin clinic only they do not make appointments) Linette Newton [Partnered Physician] - (office will call patient at home with follow up appointment)
[2017-12-17] MEDS: *HR* Acetaminophen w/Cod 300-30 mg 1 TAB TABLET PO PRN ×2 (17:13→21:28)
[2017-12-17] MEDS: traMADol 50 MG TABLET PO PRN (17:14)
[2017-12-17] MEDS: 0.9 % Sodium Chloride 1,000 ML IVC SCH ×2 (21:21→21:22)
[2017-12-18] MEDS: traMADol 50 MG TABLET PO PRN ×2 (03:30→12:01)
[2017-12-18] MEDS: *HR* Acetaminophen w/Cod 300-30 mg 1 TAB TABLET PO PRN ×2 (03:34→12:01)
[2017-12-18 05:59] LABS: Hematocrit 40.3 % (37.5-50.1); Hemoglobin 13.6 g/dL (12.9-16.9); Mean Corpuscular Hemoglobin 31.6 pg (28.0-33.3); Mean Corpuscular Volume 92.8 fL (83.0-100.0); Mean Platelet Volume 10.6 fL (9.4-12.4); Platelet Count 201 K/mcL (140-400); Red Blood Count 4.31 M/mcL (4.19-5.50); Red Cell Distribution Width 13.5 % (11.5-14.5)
[2017-12-18 06:24] LABS: BUN/Creatinine Ratio 23 (6-26); Blood Urea Nitrogen 23 mg/dL (8-23); Calcium 8.4 mg/dL (8.6-10.3); Carbon Dioxide 25 mEq/L (23-29); Chloride 107 mEq/L (98-107); Glucose 96 mg/dL (70-105); Osmolality,Calculated 290 (280-300); Potassium 3.6 mEq/L (3.5-5.1); Sodium 138 mEq/L (136-145); eGFR For African Americans > 60 (> 60); eGFR For Non-African Americans > 60 (> 60)
[2017-12-18 06:25] LABS: BUN/Creatinine Ratio 23 (6-26); Blood Urea Nitrogen 23 mg/dL (8-23); eGFR For African Americans > 60 (> 60); eGFR For Non-African Americans > 60 (> 60)
[2017-12-18 06:26] LABS: Troponin I < 0.03 ng/mL (< 0.04)
[2017-12-18] MEDS: Aspirin 81 MG TAB.CHEW PO SCH (09:21)
[2017-12-18] MEDS: Loratadine 10 MG TABLET PO SCH (09:21)
[2017-12-18] MEDS: amLODIPine 5 MG TABLET PO SCH (09:21)
[2017-12-18] MEDS: Losartan/HCTZ 50-12.5 TABLET PO SCH (09:21)
--- NOTE | 2017-12-18 10:12 | Cardiology Progress Note ---
Date of Encounter: 12/18/17 Time of Encounter: 10:08 Assessment and Plan (1) CAD (coronary artery disease) Current Visit: Yes Status: Chronic S/P LHC yesterday for unstable angina. Successful PTCA/DIANNA to pRCA. Stent from prior procedures in mLAD and distal LAD patent. Pt denies chest pain or dyspnea overnight. DAPT (ASA and Plavix) uninterrupted x 1 year. Pt verbalizes understanding. Continue BB and Statin. Right femoral access site healing well. No bleeding or hematoma noted. Mild ecchymosis. TTE EF 60%. Cardiology signing off. Reconsult PRN. Will coordinate outpt follow-up in 3-4 weeks. Qualifiers: Coronary Disease-Associated Artery/Lesion type: [place] artery [place] vs. transplanted heart: [place] heart Associated angina: angina presence unspecified Qualified Code(s): I25.10 - Atherosclerotic heart disease of [place] coronary artery without angina pectoris Discussion w patient/family: The assessment and plan as outlined above was discussed with the patient and/or family members who expressed understanding and agreement. All questions were answered. Thank you for involving us in the care of your patient. Please call with any questions. I will discuss all the above with Dr. Vazquez and make changes as necessary. Subjective Principal diagnosis: Unstable angina, CAD s/p PCI Interval history: C yesterday for unstable angina. Successful PTCA/DIANNA to pRCA. Stent from prior procedure in mLAD and distal LAD patent. TTE EF 60%. Pt denies chest pain or dyspnea overnight. Objective Vital Signs, Last 4 Hours Temp Pulse Resp BP Pulse Ox 12/18/17 07:35 98.5 F 59 17 127/79 92 Vital Signs Temp Pulse Resp BP Pulse Ox 12/18/17 07:35 98.5 F 59 17 127/79 92 12/18/17 03:40 98.1 F 67 16 94/58 95 12/17/17 22:55 98.1 F 65 17 103/69 93 12/17/17 20:59 98.9 F 68 17 105/68 94 12/17/17 19:24 99.0 F 56 20 120/72 93 12/17/17 18:30 65 15 115/76 65 12/17/17 18:00 63 121/72 95 12/17/17 17:45 84 119/76 95 12/17/17 17:30 63 128/82 63 12/17/17 17:15 60 15 117/70 91 12/17/17 17:00 62 18 139/64 92 12/17/17 11:15 98.1 F 64 15 124/80 92 Intake and Output 12/17/17 12/18/17 12/18/17 23:59 07:59 15:59 Intake Total 400 / 400 600 / 600 240 / 240 Output Total 300 / 300 Balance 100 / 100 600 / 600 240 / 240 Intake: Oral 400 / 400 600 / 600 240 / 240 Output: Urine 300 / 300 Other: Meal Breakfast Percent of Meal Consumed 100% # Voids 1 Weight 100 kg Patient Weight 12/18/17 23:59 Weight 100 kg General: Conversant, No Apparent Distress HEENT: Atraumatic, Normocephaly, Mucus Membranes Moist Neck: No JVD, Normal carotid pulses Cardiac: Reg Rate and Rhythm, Normal S1 and S2, No Murmur Lungs: Normal Breath Sounds, No Wheeze, Rales, Rhonchi Neuro: Alert and responsive, No focal deficits noted Abdomen: Soft, Non-Tender Skin: Other (right femoral access site healing well. No bleeding or hematoma noted. Mild ecchymosis.) Musculoskeletal: No Chest Wall Tenderness Extremities: No Clubbing, No Cyanosis, No Edema, Normal Pulses Results 12/18/17 05:13 12/18/17 05:13 Lab Results 12/18/17 12/18/17 12/18/17 05:13 05:13 05:13 WBC 9.0 Hgb 13.6 13.6 Hct 40.3 40.0 Plt Count 210 201 Sodium Potassium Chloride Carbon Dioxide BUN 23 Creatinine 0.98 Glucose Calcium Troponin I < 0.03 12/18/17 05:13 WBC Hgb Hct Plt Count Sodium 138 Potassium 3.6 Chloride 107 Carbon Dioxide 25 BUN 23 Creatinine 0.98 Glucose 96 Calcium 8.4 L Troponin I Short CBC 12/18/17 12/18/17 Range/Units 05:13 05:13 WBC 9.0 (4.3-11.1) K/mcL Hgb 13.6 13.6 (12.9-16.9) g/dL Hct 40.0 40.3 (37.5-50.1) % Plt Count 201 210 (140-400) K/mcL BMP 12/18/17 12/18/17 Range/Units 05:13 05:13 Sodium 138 (136-145) mEq/L Potassium 3.6 (3.5-5.1) mEq/L Chloride 107 (98-107) mEq/L Carbon Dioxide 25 (23-29) mEq/L BUN 23 23 (8-23) mg/dL Creatinine 0.98 0.98 (0.70-1.30) mg/dL Glucose 96 (70-105) mg/dL Calcium 8.4 L (8.6-10.3) mg/dL Cardiac Enzymes 12/18/17 Range/Units 05:13 Troponin I < 0.03 (< 0.04) ng/mL Active Medications Acetaminophen/Codeine Phosphate (Tylenol W/Codeine #3) 1 tab PO Q4HR PRN PRN Reason: Severe Pain Stop: 06/17/18 10:04 Last Admin: 12/18/17 03:34 Dose: 1 tab Amlodipine Besylate (Norvasc) 10 mg PO DAILY [facility] PRN Reason: Protocol Stop: 06/17/18 10:16 Last Admin: 12/18/17 09:21 Dose: 10 mg Aspirin (Aspirin) 81 mg PO DAILY [facility] Stop: 06/17/18 10:52 Last Admin: 12/18/17 09:21 Dose: 81 mg Atorvastatin Calcium (Lipitor) 80 mg PO HS [facility] Stop: 06/17/18 21:01 Last Admin: 12/17/17 19:47 Dose: 80 mg Carvedilol (Coreg) 6.25 mg PO BIDWM N[facility]ITA PRN Reason: Protocol Stop: 06/17/18 10:16 Last Admin: 12/18/17 09:21 Dose: 6.25 mg Clopidogrel Bisulfate (Plavix) 75 mg PO DAILY [facility] Stop: 06/17/18 10:16 Last Admin: 12/18/17 09:21 Dose: 75 mg HCTZ/Losartan Potassium (Hyzaar 50/12.5) 2 each PO DAILY [facility] Stop: 06/17/18 10:16 Last Admin: 12/18/17 09:21 Dose: 2 each Sodium Chloride (0.9 % Sodium Chloride) 1,000 mls @ 100 mls/hr IVC .Q10H [facility] Stop: 06/18/18 11:01 Last Admin: 12/17/17 21:22 Dose: Not Given Loratadine (Claritin) 10 mg PO DAILY [facility] PRN Reason: Protocol Stop: 06/17/18 10:16 Last Admin: 12/18/17 09:21 Dose: 10 mg Naloxone HCl (Narcan) 0.4 mg IVP Q2MIN PRN PRN Reason: SEE COMMENTS Stop: 06/17/18 10:13 Nitroglycerin (Nitroglycerin) 0.4 mg SL Q5MIN PRN PRN Reason: Chest Pain Stop: 06/17/18 10:04 Tramadol HCl (Ultram) 50 mg PO BID PRN PRN Reason: Pain Stop: 06/17/18 10:04 Last Admin: 12/18/17 03:30 Dose: 50 mg - Imaging and Cardiology Echo: report reviewed Cardiac cath: report reviewed - EKG Interpretation EKG results cardiology: other (12 hr tele AVG HR 59, SR, no significant pauses or arrhythmias noted.) - VTE Reasons for not Prescribing Prophylaxis: Treatment not Indicated - Low risk for VTE Documentation of Mechanical Device: Intermittent pneumatic compression device Consult Discharge Plan - Plan Additional Instructions: RISK FACTORS: STOP SMOKING: If you smoke, STOP. Smoking or tobacco use significantly increases your risk of heart disease because nicotine causes the arteries to narrow or constrict. It also causes fats to stick to the artery. Your chances of having a heart attack are greatly increased if you continue to smoke. For more information, call the education line for smoking cessation 4-504-YUAMTZH EAT A LOW FAT/CHOLESTEROL/SODIUM DIET: This diet may help reduce your chances of having a heart attack. LIFTING: Avoid lifting anything more than 10 pounds for 5-7 days Prior to straining, laughing, sneezing and/or coughing, apply manual pressure directly over insertion site. ACTIVITY: You may walk or climb stairs as tolerated You can resume sexual activity as tolerated In general, you are encouraged to engage in a minimum of 30 minutes or more of moderate intensity physical activity, such as brisk walking, daily or at least 3 -4 times weekly BATHING Do not submerge the site into water (bath tub, hot tub, swimming pool) for 1 week. This can be a source for infection into the blood stream. You may shower after 24 hours SITE CARE: After 24 hours, you may remove the dressing and leave the site open to air. Keep the site clean and dry. Clean gently and pat dry. You can expect bruising and tenderness that gradually resolve within a week or two. Return to work as instructed per your physician Resume driving as instructed per physician Keep all scheduled follow up appointments Resume medications as instructed IMPORTANT: If prescribed a Platelet Aggregation Inhibitor such as, Plavix, Brilinta or Effient: Duration of therapy is minimum one year These medications are often used in combination with Aspirin in prevention of future heart attacks Never discontinue unless consult with your [employer] STROKE (CVA) Risk factors for a stroke are: Age, cigarette smoking, diabetes, excessive alcohol consumption, family history, high blood pressure, overweight, physical inactivity, prior stroke, heart attack, diagnosis of carotid artery stenosis or other artery disease. Warning signs: Sudden numbness or weakness of the face, arm or leg; especially on one side of the body, sudden confusion, trouble speaking or understanding, sudden trouble seeing in one or both eyes, sudden trouble walking, dizziness, loss of balance or coordination, sudden severe headache with no cause. Call 911 or go to the Emergency Room. CONGESTIVE HEART FAILURE: If you have been diagnosed with Congestive Heart Failure (CHF) and your symptoms return, make an appointment with your physician Weigh yourself daily. Notify your physician if you have a weight gain of two or more pounds in one day or five or more pounds in one week. If you experience any difficulty breathing, please call 911 BLEEDING: Although the risk of bleeding is minimal, it can happen. If you have any bleeding from the site, apply firm pressure above the puncture site for 10-15 minutes. If the bleeding does not stop, continue manual pressure and call 911 Contact your physician if: You develop a fever greater than 101 degrees Fahrenheit Your site becomes reddened or has any drainage You have an increase in pain or burning at the site or if a large knot forms at the site. If you experience chest pain, shortness of breath, dizziness, or extreme tiredness, stop the activity and rest. Please notify your physicians office if you experience any of these symptoms and they are not relieved by rest please call 911! Referrals: Lulu Day MD [Partnered Physician] - 12/20/17 9:40 am Leonor Smith CNP [Family Provider] - (This is a walkin clinic only they do not make appointments) Linette Newton [Partnered Physician] - (office will call patient at home with follow up appointment)
[2017-12-18] MEDS ORDERED: Isovue-370 500 ML INFUS..BTL IV ONE (10:57)
--- NOTE | 2017-12-18 16:12 | Internal Med Progress Note ---
Date of Encounter: 12/18/17 Time of Encounter: 09:05 - Assessment and plan (1) CAD (coronary artery disease) Current Visit: Yes Status: Chronic Assessment and plan: Chronic. Continue Norvasc, aspirin, Lipitor, Coreg, Plavix Continue telemetry Patient denies chest pain. Qualifiers: Coronary Disease-Associated Artery/Lesion type: [place] artery [place] vs. transplanted heart: [place] heart Associated angina: angina presence unspecified Qualified Code(s): I25.10 - Atherosclerotic heart disease of [place] coronary artery without angina pectoris (2) Chest pain Current Visit: Yes Status: Inactive Assessment and plan: Denies chest pain. [facility] yesterday, severe 2 vessel CAD. Patient has successful PTCA/DIANNA placement proximal RCA. 2 prior stents are both patent. Patient denies chest pain, does report shortness of breath with exertion. Chest CTA is negative. Bilateral lower extremity Dopplers ordered and pending. Continue telemetry Pain management. Qualifiers: Chest pain type: other chest pain Qualified Code(s): R07.89 - Other chest pain; R07.8 - Other chest pain (3) Chronic lower back pain Current Visit: Yes Status: Chronic Assessment and plan: Chronic. Continue home medications. Qualifiers: Back pain laterality: unspecified Sciatica presence: unspecified whether sciatica present Qualified Code(s): M54.5 - Low back pain; G89.29 - Other chronic pain; G89.29 - Other chronic pain (4) Hypertension Current Visit: Yes Status: Chronic Assessment and plan: Chronic. Well controlled. Continue home medications. Qualifiers: Hypertension type: essential hypertension Qualified Code(s): I10 - Essential (primary) hypertension (5) DVT prophylaxis Current Visit: Yes Status: Acute Assessment and plan: SCDs. Continue to encourage ambulation. - Time Spent With Patient Total time spent is greater than 50% in coordination of care (as documented) at patient's floor/unit and/or counseling patient: less than 15 minutes - Subjective Interval history: pt was seen and assessed at bedside at 0905. at bedside. Pt reports continued SOB, states that it is worse with exertion. Pt reports tenderness to palpation in left calf. Denies chest pain, n/v, diaphoresis, headache, blurred vision, abdominal pain. - Constitutional Vitals: Temp Pulse Resp BP Pulse Ox 98.6 F 63 18 133/75 95 12/18/17 11:52 12/18/17 11:52 12/18/17 11:52 12/18/17 11:52 12/18/17 11:52 General appearance: Present: cooperative, A&O X 3, morbidly obese, no acute distress, answers questions appropriately - Head Head exam: Present: atraumatic, normal inspection, normocephalic - Eye Eye exam: Present: normal appearance, conjuntiva pink, sclera anicteric - Neck Neck exam general surgery: Present: supple, trachea midline. Absent: lymphadenopathy, tenderness - Respiratory Respiratory exam: Present: decreased breath sounds, CTAB. Absent: accessory muscle use, chest wall tenderness, rales, respiratory distress, rhonchi, wheezes - Cardiovascular Cardiovascular exam: Present: RRR, +S1, +S2. Absent: diastolic murmur, gallop, rubs, systolic murmur - GI/Abdominal GI/Abdominal exam: Present: normal bowel sounds, soft, no peritoneal signs. Absent: distended, hepatomegaly, tenderness - Extremities Exam Extremities exam: Present: normal capillary refill, normal inspection, warm, radial pulses palpable and symmetrical. Absent: calf tenderness, cyanotic, pedal edema, tenderness - Expanded Lower Extremities Exam Hip exam: Present: tenderness - Neurological Exam Neurological exam: Present: alert, oriented X3, no focal deficits. Absent: facial droop, speech deficit - Skin Skin exam: Present: dry, intact. Absent: rash, warm Internal Medicine: Result - Labs CBC & Chem 7: 12/18/17 05:13 12/18/17 05:13 Labs: Short CBC 12/18/17 12/18/17 Range/Units 05:13 05:13 WBC 9.0 (4.3-11.1) K/mcL Hgb 13.6 13.6 (12.9-16.9) g/dL Hct 40.3 40.0 (37.5-50.1) % Plt Count 210 201 (140-400) K/mcL BMP 12/18/17 12/18/17 05:13 05:13 Sodium 138 Potassium 3.6 Chloride 107 Carbon Dioxide 25 BUN 23 23 Creatinine 0.98 0.98 Glucose 96 Calcium 8.4 L Cardiac Enzymes 12/18/17 Range/Units 05:13 Troponin I < 0.03 (< 0.04) ng/mL - Impressions Impressions Chest CTA 12/18/17 10:57 IMPRESSION: 1. No CT evidence of a pulmonary embolism. 2. No acute abnormality of the thoracic aorta. 3. Trace bilateral pleural effusions with mild dependent atelectasis within the bilateral lower lobes. There are no acute intrapulmonary findings. D/ / 12/18/2017 12:48:42 Good Danielle MD / sai Interpreting Provider: Good Danielle MD - VTE Reasons for not Prescribing Prophylaxis: Treatment not Indicated - Low risk for VTE Documentation of Mechanical Device: Intermittent pneumatic compression device Consult Discharge Plan - Plan Additional Instructions: RISK FACTORS: STOP SMOKING: If you smoke, STOP. Smoking or tobacco use significantly increases your risk of heart disease because nicotine causes the arteries to narrow or constrict. It also causes fats to stick to the artery. Your chances of having a heart attack are greatly increased if you continue to smoke. For more information, call the education line for smoking cessation 2-264-FJBAVGS EAT A LOW FAT/CHOLESTEROL/SODIUM DIET: This diet may help reduce your chances of having a heart attack. LIFTING: Avoid lifting anything more than 10 pounds for 5-7 days Prior to straining, laughing, sneezing and/or coughing, apply manual pressure directly over insertion site. ACTIVITY: You may walk or climb stairs as tolerated You can resume sexual activity as tolerated In general, you are encouraged to engage in a minimum of 30 minutes or more of moderate intensity physical activity, such as brisk walking, daily or at least 3 -4 times weekly BATHING Do not submerge the site into water (bath tub, hot tub, swimming pool) for 1 week. This can be a source for infection into the blood stream. You may shower after 24 hours SITE CARE: After 24 hours, you may remove the dressing and leave the site open to air. Keep the site clean and dry. Clean gently and pat dry. You can expect bruising and tenderness that gradually resolve within a week or two. Return to work as instructed per your physician Resume driving as instructed per physician Keep all scheduled follow up appointments Resume medications as instructed IMPORTANT: If prescribed a Platelet Aggregation Inhibitor such as, Plavix, Brilinta or Effient: Duration of therapy is minimum one year These medications are often used in combination with Aspirin in prevention of future heart attacks Never discontinue unless consult with your [employer] STROKE (CVA) Risk factors for a stroke are: Age, cigarette smoking, diabetes, excessive alcohol consumption, family history, high blood pressure, overweight, physical inactivity, prior stroke, heart attack, diagnosis of carotid artery stenosis or other artery disease. Warning signs: Sudden numbness or weakness of the face, arm or leg; especially on one side of the body, sudden confusion, trouble speaking or understanding, sudden trouble seeing in one or both eyes, sudden trouble walking, dizziness, loss of balance or coordination, sudden severe headache with no cause. Call 911 or go to the Emergency Room. CONGESTIVE HEART FAILURE: If you have been diagnosed with Congestive Heart Failure (CHF) and your symptoms return, make an appointment with your physician Weigh yourself daily. Notify your physician if you have a weight gain of two or more pounds in one day or five or more pounds in one week. If you experience any difficulty breathing, please call 911 BLEEDING: Although the risk of bleeding is minimal, it can happen. If you have any bleeding from the site, apply firm pressure above the puncture site for 10-15 minutes. If the bleeding does not stop, continue manual pressure and call 911 Contact your physician if: You develop a fever greater than 101 degrees Fahrenheit Your site becomes reddened or has any drainage You have an increase in pain or burning at the site or if a large knot forms at the site. If you experience chest pain, shortness of breath, dizziness, or extreme tiredness, stop the activity and rest. Please notify your physicians office if you experience any of these symptoms and they are not relieved by rest please call 911! Referrals: Lulu Day MD [Partnered Physician] - 12/20/17 9:40 am Leonor Smith CNP [Family Provider] - (This is a walkin clinic only they do not make appointments) Linette Newton [Partnered Physician] - (office will call patient at home with follow up appointment)
[2017-12-18] MEDS: 0.9 % Sodium Chloride 1,000 ML IVC SCH (19:14)
--- NOTE | 2017-12-18 19:22 | Discharge Summary ---
- NOTES TO OUTPATIENT PROVIDER Notes to Outpatient Provider: Pt admitted from outside hospital with chest pain. Chest pain began the night before admission. Patient had mildly elevated blood pressure at that time. History of stents one month ago. He had associated shortness of breath with the pain, no diaphoresis or radiation. LHC performed 12/17/17 showed severe 2 vessel CAD, successful PTCA/drug-eluting stent placement proximal RCA. Mid LAD and distal LAD patent stents from prior procedure. Patient continued to report shortness of breath. Chest CTA negative for PE or AAA, trace bilateral pleural effusions noted, bilateral lower extremity Dopplers are negative. Patient could possibly benefit from PFTs with pulmonology after discharge and close follow up. Orders not resulted at time of discharge: Pending orders 12/17/17 06:00 ECG 12 lead ECG [ECG] AM 0600 12/17/17 14:59 ECG 12 lead ECG [ECG] Stat 12/18/17 06:00 ECG 12 lead ECG [ECG] AM 0612/19/17 04:00 BMP [Basic Metabolic Panel] AM 0400 Complete Blood Count w/o Diff [HEME] AM 0400 12/20/17 04:00 BMP [Basic Metabolic Panel] AM 0400 Complete Blood Count w/o Diff [HEME] AM 0400 12/21/17 04:00 BMP [Basic Metabolic Panel] AM 0400 Complete Blood Count w/o Diff [HEME] AM 0400 12/22/17 04:00 BMP [Basic Metabolic Panel] AM 0400 Complete Blood Count w/o Diff [HEME] AM 0400 Date of Encounter: 12/18/17 Time of Encounter: 09:05 - Discharge Diagnosis (1) CAD (coronary artery disease) Priority: Secondary Status: Chronic Assessment and Plan: Chronic. Continue Norvasc, aspirin, Lipitor, Coreg, Plavix Patient denies chest pain, reports WILD. LHC performed with PTCA/DIANNA stent to proximal RCA. Prior stents to distal LAD and mid LAD are both patent. Recommend risk factor modification, optimal medical therapy. Qualifiers: Coronary Disease-Associated Artery/Lesion type: [place] artery [place] vs. transplanted heart: [place] heart Associated angina: angina presence unspecified Qualified Code(s): I25.10 - Atherosclerotic heart disease of [place] coronary artery without angina pectoris (2) Chest pain Priority: Primary Status: Inactive Assessment and Plan: Denies chest pain. [facility] yesterday, severe 2 vessel CAD. Patient has successful PTCA/DIANNA placement proximal RCA. 2 prior stents are both patent. Patient denies chest pain, does report shortness of breath with exertion. Chest CTA is negative. Bilateral lower extremity Dopplers are negative Unclear etiology. Patient with normotensive pressures, no tachycardia or bradycardia. Patient has been on room air. Patient could benefit from close follow-up, as well as PFTs after discharge. Qualifiers: Chest pain type: other chest pain Qualified Code(s): R07.89 - Other chest pain; R07.8 - Other chest pain (3) Chronic lower back pain Priority: Secondary Status: Chronic Assessment and Plan: Chronic. Continue home doses of meloxicam, Tylenol 3. Qualifiers: Back pain laterality: unspecified Sciatica presence: unspecified whether sciatica present Qualified Code(s): M54.5 - Low back pain; G89.29 - Other chronic pain; G89.29 - Other chronic pain (4) Hypertension Priority: Secondary Status: Chronic Assessment and Plan: Chronic. Well controlled. Continue home medications.currently takes Norvasc, losartan/HCTZ 100-25 daily, carvedilol. Qualifiers: Hypertension type: essential hypertension Qualified Code(s): I10 - Essential (primary) hypertension (5) DVT prophylaxis Priority: Secondary Status: Acute Assessment and Plan: SCDs ordered during stay. Hospital course: Mr. Polanco is a 62 year old male with past medical history of coronary artery disease, hypertension, chronic low back pain right inguinal hernia. Patient presented to the emergency department from outside hospital for admission to rule out ACS. Patient presented with chest pain that started the night before admission, no radiation, did not have associated shortness of breath. Patient had abnormal stress test, [facility] 12/17 with PTCA/DIANNA to proximal RCA. Prior stents to mid LAD and distal LAD were both patent. Recommended optimal medical therapy as well as aggressive risk factor modification. Patient will continue Norvasc, aspirin, Lipitor, Plavix, losartan/ hydrochlorothiazide, beta tg. Patient reported shortness of breath with exertion. Concern for PE. Chest CTA negative for PE, no thoracic kerr aorta. Patient does have trace bilateral pleural effusions and bilateral lower lobes. Bilateral lower extremity Dopplers were negative. Close follow-up with primary care. Patient was anxious to go home, suggested leaving AMA multiple times throughout the day, coerced him to stay. He did consent to stay for testing and was asking to leave as soon as dopplers were resulted. Pt also with suspicious red, itchy, dime-sized lesion to upper mid back. Pt has been referred to dermatology and has an appointment in 2 days. Vitals and labs are stable and within normal limits. Pt ready for discharge. Discharge discussed with: patient, family - Time Spent with Patient Total time spent providing and/or coordinating discharge services: Less than 30 minutes - Discharge Medications Home Medications: amLODIPine [Norvasc] 10 mg PO DAILY 10/12/17 [History] Carvedilol [Coreg] 6.25 mg PO BID 11/20/17 [History] Aspirin 81 mg PO DAILY #30 tab.chew 11/21/17 [Rx] Atorvastatin [Lipitor] 80 mg PO HS #30 tablet 11/21/17 [Rx] Clopidogrel [Plavix] 75 mg PO DAILY #30 tablet 11/21/17 [Rx] Nitroglycerin 0.4 mg SL Q5MIN PRN #25 tab.subl 11/21/17 [Rx] Acetaminophen w/Cod 300-30 mg [Tylenol w/Codeine #3] 1 - 2 tab PO Q4HR PRN 12/16 [History] Loratadine [Claritin] 10 mg PO DAILY 12/16/17 [History] Losartan/Hydrochlorothiazide [Losartan-Hctz 100-25 mg Tab] 1 tab PO DAILY [History] Meloxicam 15 mg PO DAILY 12/16/17 [History] Allergies/Adverse Reactions: 3 Allergy/AdvReac Type Severity Reaction Status Date / Time No Known Allergies Allergy Verified 12/16/17 01:10 Date of admission: 12/16/17 04:58 Primary care physician: Norma Cruz, Consults: 12/16/17 10:12 Consult to Cardiology [CONS] Routine Comment: Consulting Provider: Cardiology Genia Reason for Consult: ACS ruleout. Please evaluate and give recommendations given history of recent cath + stents (1 month ago). Negative workup thus far. Call Completed: Yes 12/17/17 14:59 Consult to Cardiac Rehabilitation-Phase1 [CONS] Routine Comment: Reason for Consult: post op PCI Call Completed: Yes Discharging clinician: Katina Franco Anticipated date of discharge: 12/18/17 - Constitutional Vitals: Temp Pulse Resp BP Pulse Ox 98.0 F 64 16 123/81 95 12/18/17 16:05 12/18/17 16:05 12/18/17 16:05 12/18/17 16:05 12/18/17 16:05 General appearance: Present: cooperative, A&O X 3, morbidly obese, no acute distress, answers questions appropriately - Head Head exam: Present: atraumatic, normocephalic - Eye Eye exam: Present: PERRL, conjuntiva pink, sclera anicteric Pupils: Present: PERRL - Neck Neck exam general surgery: Present: supple, trachea midline. Absent: lymphadenopathy - Respiratory Respiratory exam: Present: CTAB. Absent: accessory muscle use, chest wall tenderness, decreased breath sounds, rales, respiratory distress, rhonchi, stridor, wheezes, tachypnea - Cardiovascular Cardiovascular exam: Present: RRR, +S1, +S2. Absent: bradycardia, diastolic murmur, gallop, rubs, systolic murmur, tachycardia - GI/Abdominal GI/Abdominal exam: Present: normal bowel sounds, soft. Absent: distended, hepatomegaly, tenderness - Extremities Exam Extremities exam: Present: normal capillary refill, normal inspection, tenderness, warm, radial pulses palpable and symmetrical. Absent: calf tenderness, cyanotic, pedal edema Additional comments: Patient reports tenderness to left calf with palpation. - Neurological Exam Neurological exam: Present: alert, oriented X3, no focal deficits. Absent: facial droop, speech deficit - Skin Skin exam: Present: dry, intact, normal color, warm. Absent: rash - Patient Status Disposition: Home, Self-Care Condition: Good Functional capacity at discharge: independent ambulation Overall status at discharge: patient is progressing back to baseline - Discharge Instructions Follow Up With: Lulu Day MD [Partnered Physician] - 12/20/17 9:40 am Linette Newton [Partnered Physician] - (office will call patient at home with follow up appointment) Leonor Smith CNP [Family Provider] - 12/19/17 (This is a walkin clinic only they do not make appointments) Additional Instructions: RISK FACTORS: STOP SMOKING: If you smoke, STOP. Smoking or tobacco use significantly increases your risk of heart disease because nicotine causes the arteries to narrow or constrict. It also causes fats to stick to the artery. Your chances of having a heart attack are greatly increased if you continue to smoke. For more information, call the education line for smoking cessation 2-895-ETPGYCE EAT A LOW FAT/CHOLESTEROL/SODIUM DIET: This diet may help reduce your chances of having a heart attack. LIFTING: Avoid lifting anything more than 10 pounds for 5-7 days Prior to straining, laughing, sneezing and/or coughing, apply manual pressure directly over insertion site. ACTIVITY: You may walk or climb stairs as tolerated You can resume sexual activity as tolerated In general, you are encouraged to engage in a minimum of 30 minutes or more of moderate intensity physical activity, such as brisk walking, daily or at least 3 -4 times weekly BATHING Do not submerge the site into water (bath tub, hot tub, swimming pool) for 1 week. This can be a source for infection into the blood stream. You may shower after 24 hours SITE CARE: After 24 hours, you may remove the dressing and leave the site open to air. Keep the site clean and dry. Clean gently and pat dry. You can expect bruising and tenderness that gradually resolve within a week or two. Return to work as instructed per your physician Resume driving as instructed per physician Keep all scheduled follow up appointments Resume medications as instructed IMPORTANT: If prescribed a Platelet Aggregation Inhibitor such as, Plavix, Brilinta or Effient: Duration of therapy is minimum one year These medications are often used in combination with Aspirin in prevention of future heart attacks Never discontinue unless consult with your Cosmetologist Apprentice STROKE (CVA) Risk factors for a stroke are: Age, cigarette smoking, diabetes, excessive alcohol consumption, family history, high blood pressure, overweight, physical inactivity, prior stroke, heart attack, diagnosis of carotid artery stenosis or other artery disease. Warning signs: Sudden numbness or weakness of the face, arm or leg; especially on one side of the body, sudden confusion, trouble speaking or understanding, sudden trouble seeing in one or both eyes, sudden trouble walking, dizziness, loss of balance or coordination, sudden severe headache with no cause. Call 911 or go to the Emergency Room. CONGESTIVE HEART FAILURE: If you have been diagnosed with Congestive Heart Failure (CHF) and your symptoms return, make an appointment with your physician Weigh yourself daily. Notify your physician if you have a weight gain of two or more pounds in one day or five or more pounds in one week. If you experience any difficulty breathing, please call 911 BLEEDING: Although the risk of bleeding is minimal, it can happen. If you have any bleeding from the site, apply firm pressure above the puncture site for 10-15 minutes. If the bleeding does not stop, continue manual pressure and call 911 Contact your physician if: You develop a fever greater than 101 degrees Fahrenheit Your site becomes reddened or has any drainage You have an increase in pain or burning at the site or if a large knot forms at the site. If you experience chest pain, shortness of breath, dizziness, or extreme tiredness, stop the activity and rest. Please notify your physicians office if you experience any of these symptoms and they are not relieved by rest please call 911! Please follow up with your PCP in the next 2-3 days and with dermatology as scheduled in 2 days. If your symptoms return or worsen, return to the ER. Take your medications as directed. Return to your normal activities and diet as tolerated. - Diet and Activity Activity: increase activity as tolerated Diet: advance to your usual diet, low fat, low cholesterol, low salt diet - VTE Reasons for not Prescribing Prophylaxis: Treatment not Indicated - Low risk for VTE Documentation of Mechanical Device: Intermittent pneumatic compression device
[2017-12-18 19:30] VITALS: BP 132/74
== END 2017-12-18 20:15 | disposition home or self-care (01) ==
LOC: 3BNU → 2NNU 12-17 15:03 → 3BNU 12-17 16:32
PROVIDERS: ADMIT Internal Medicine; ATTEND Internal Medicine